=== PATIENT | female | born 1960 | race Caucasian/White ===

== ENCOUNTER 2018-05-04 17:06 | Emergency (ER) | payer MEDICAID ==
[~2018-05-04] VITALS: Ht 167.6 cm; Wt 100.0 kg
[2018-05-04] MEDS ORDERED: normal saline 1000ML IV soln IVB ONE (17:35)
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
--- NOTE | 2018-05-04 17:47 | NUR ---
PATIENT ETOH AND NOT FOLLOWING COMMANDS. PATIENT PULLING AT LINES. PATIENT PLACED IN BILATERAL SOFT LIMB WRIST RESTRAINTS FOR SAFETY.
[2018-05-04 18:36] VITALS: BP 149/88
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
== END 2018-05-04 19:23 ==
LOC: ER 17:07
DX: F10.129 Alcohol abuse with intoxication, unspecified (principal); Y90.9 Presence of alcohol in blood, level not specified
CPT/HCPCS: 99284; J7030

== ENCOUNTER 2018-05-04 19:56 | Emergency (ER) | payer MEDICAID ==
[~2018-05-04] VITALS: Ht 162.6 cm; Wt 85.2 kg
[2018-05-04 22:19] VITALS: BP 142/80
== END 2018-05-04 22:23 | disposition home or self-care (01) ==
LOC: ER 19:57
DX: S00.12XA Contusion of left eyelid and periocular area, initial encounter (principal); F10.129 Alcohol abuse with intoxication, unspecified; Y90.9 Presence of alcohol in blood, level not specified; W18.39XA Other fall on same level, initial encounter; Y93.89 Activity, other specified; Y92.89 Other specified places as the place of occurrence of the external cause; Y99.8 Other external cause status
CPT/HCPCS: 70450; 70486; 72125; 99284

== ENCOUNTER 2019-01-10 09:56 | Observation (INO) | payer MEDICAID ==
[~2019-01-10] VITALS: Ht 162.6 cm; Wt 93.2 kg
[2019-01-10 10:44] LABS: BASOPHILS % (AUTO) 0.7 % (0-1); EOSINOPHILS # (AUTO) 0.2 X10'3 (0-0.9); EOSINOPHILS % (AUTO) 4.5 % (0-6); HEMATOCRIT 41.7 % (35.0-45.0); HEMOGLOBIN 14.1 g/dl (12.0-16.0); LYMPHOCYTES # (AUTO) 1.4 X10'3 (1.1-4.8); LYMPHOCYTES % (AUTO) 27.5 % (21-51); MEAN CORPUSCULAR HEMOGLOBIN 31.4 PG (27.0-31.0); MEAN CORPUSCULAR HGB CONC 33.8 g/dL (33.0-36.5); MEAN CORPUSCULAR VOLUME 92.9 FL (78-98); MEAN PLATELET VOLUME 8.7 FL (7.4-10.4); MONOCYTES # (AUTO) 0.4 X10'3 (0-0.9); MONOCYTES % (AUTO) 7.6 % (2-12); NEUTROPHILS % (AUTO) 59.7 % (42-75); PLATELET COUNT 230 X10'3 (140-440); RED BLOOD COUNT 4.48 X10'6 (4.20-5.60); RED CELL DISTRIBUTION WIDTH 12.3 % (11.5-14.5)
[2019-01-10 10:53] LABS: PARTIAL THROMBOPLASTIN TIME 25 SECONDS (22-32)
[2019-01-10 10:59] LABS: ALANINE AMINOTRANSFERASE 44 U/L (12-78); ALBUMIN 4.5 G/DL (3.4-5.0); ALBUMIN/GLOBULIN RATIO 1.4 (1.1-1.5); ALKALINE PHOSPHATASE 85 IU/L (46-116); ANION GAP 11 (8-16); ASPARTATE AMINO TRANSFERASE 20 U/L (10-37); BILIRUBIN,TOTAL 0.4 MG/DL (0.1-1.0); BLOOD UREA NITROGEN 14 MG/DL (7-18); CALCIUM 8.9 MG/DL (8.5-10.1); CHLORIDE 103 MMOL/L (99-107); CREATININE 0.56 MG/DL (0.40-0.90); GLUCOSE 148 MG/DL (70-104); POTASSIUM 4.1 MMOL/L (3.5-5.1); SODIUM 141 MMOL/L (135-145); TOTAL CARBON DIOXIDE 26.9 MMOL/L (24-32); TOTAL PROTEIN 7.7 G/DL (6.4-8.2); eGFR > 90 ML/MIN
[2019-01-10] MEDS ORDERED: aspirin 325mg tablet PO ONE (11:20)
[2019-01-10] MEDS ORDERED: aspirin 81mg tab.chew PO ONE (11:20)
[2019-01-10] MEDS ORDERED: magnesium 2GM in 50ml NS 50 ML IV PRN (11:45)
[2019-01-10] MEDS ORDERED: magnesium Cl slow-release 64mg tablet PO PRN (11:45)
[2019-01-10] MEDS ORDERED: potassium Cl 20 mEq SR tablet PO PRN ×2 (11:45)
[2019-01-10] MEDS ORDERED: magnesium hydroxide 30ml (MOM) UD suspension PO PRN (11:45)
[2019-01-10] MEDS ORDERED: morphine 2 MG/ML inj. syringe IV PRN ×2 (11:45)
[2019-01-10] MEDS ORDERED: mag hydrox/Alum hydrox/simeth 30ml oral suspension PO PRN (11:45)
[2019-01-10] MEDS ORDERED: magnesium 4gm in 100ml NS 100 ML IV PRN (11:45)
[2019-01-10] MEDS ORDERED: ondansetron/PF 4mg/2ml inj IV PRN (11:45)
[2019-01-10] MEDS ORDERED: acetaminophen 325mg tablet PO PRN ×2 (11:45)
[2019-01-10] MEDS ORDERED: potassium CL 10mEq/100ml bag 100 ML IV PRN ×2 (11:45)
[2019-01-10] MEDS ORDERED: AMLO10TA13 PO (12:35)
[2019-01-10] MEDS ORDERED: MELO-100 PO (12:35)
[2019-01-10] MEDS ORDERED: CETI10TA14 PO (12:35)
[2019-01-10] MEDS ORDERED: LOSA50TA64 PO (12:35)
[2019-01-10] MEDS ORDERED: ATOR20TA66 PO (12:35)
[2019-01-10] MEDS ORDERED: TRAZ-219 PO (12:35)
[2019-01-10] MEDS ORDERED: VENL75CA61 PO (12:35)
[2019-01-10] MEDS ORDERED: LORA10TA7 PO (12:35)
[2019-01-10] MEDS ORDERED: METF-950 PO (12:35)
[2019-01-10] MEDS ORDERED: LEVO50TA8 PO (12:35)
[2019-01-10] MEDS ORDERED: HYDR12.55 PO (12:35)
[2019-01-10] MEDS ORDERED: MONT10TA24 PO (12:35)
[2019-01-10] MEDS ORDERED: MULT-955 PO (12:52)
[2019-01-10] MEDS ORDERED: CALC-1051 PO (12:54)
[2019-01-10] MEDS ORDERED: MELOXICAM 15 MG PO SCH (13:45)
[2019-01-10] MEDS: naproxen 500mg tablet PO SCH ×2 (14:01→18:00)
[2019-01-10] MEDS ORDERED: nitroGLYCERIN 0.4mg SUBLingual tab SL PRN (14:15)
[2019-01-10] MEDS ORDERED: regadenoson 0.4mg/5ml syringe IV ONE (14:15)
[2019-01-10] MEDS ORDERED: dextrose ORAL solution 15 GM/59 ML bottle PO PRN ×2 (14:15)
[2019-01-10] MEDS ORDERED: aminophylline 250mg/10ml inj. IV PRN (14:15)
[2019-01-10] MEDS ORDERED: metoprolol tartrate 1mg/ml inj IV PRN (14:15)
[2019-01-10] MEDS ORDERED: dextrose 50%-water 50ml dispensing syringe IV PRN ×2 (14:15)
[2019-01-10] MEDS ORDERED: MESSAGE TO PHARMACY PO ONE (14:15)
[2019-01-10] MEDS ORDERED: glucagon, human recombinant 1mg kit SUBCUT PRN (14:15)
[2019-01-10] MEDS ORDERED: insulin Lispro (HumaLOG) vial - multi-dose SQ SCH (14:15)
[2019-01-10 14:23] LABS: HEMOGLOBIN A1C 6.3 % (4.5-6.2)
[2019-01-10 15:59] LABS: MAGNESIUM 2.5 MG/DL (1.5-2.4)
[2019-01-10 16:36] VITALS: BP 126/64
--- NOTE | 2019-01-10 16:40 | NUR ---
received report from LOTUS escamilla RN,assumed care of pt,pt admitted to .310 @[id number].
[2019-01-10] MEDS ORDERED: calcium carbonate/vitamin D3 tablet PO SCH (17:30)
[2019-01-10 18:00] VITALS: BP 121/71
--- NOTE | 2019-01-10 18:05 | NUR ---
Patient in room MED 310. I have received report from GIANNA Cardona and had the opportunity to ask questions and assume patient care.
--- NOTE | 2019-01-10 18:24 | NUR ---
[facility] documentation and med administration: I have reviewed and agree with all interventions, assessments performed and documented by Ashia KATZ.
--- NOTE | 2019-01-10 20:20 | NUR ---
At 1956 performed EKG per [facility] protocol, this had not been completed with the 6 hour troponin and the patient was complaining of 3-4/10 chest pain. In report I was told that the patient was given some Tylenol for the pain and there was not NTG or Morphine ordered for patient. The EKG did show some ST elevation in the II lead and so I went to show this to Dr. Beltran who compared with previous EKG from around 1400 and he signed off on and noted the changes. I reported to him that the patient was continuing to have the chest pains and that I saw that there were orders for NTG for the patient. He said to give to the patient. I did give this to the patient Nitroglycerin 0.4mg tablet x1, within 1 minute she stated that her pain had subsided and she felt that she could breathe easier. Will continue to monitor patient for duration of shift.
[2019-01-10] MEDS: nitroGLYCERIN 0.4mg SUBLingual tab SL PRN (20:22)
[2019-01-10] MEDS: metoprolol tartrate 12.5mg (1/2 tablet) PO SCH (20:48)
[2019-01-10] MEDS ORDERED: traZODone 50mg tablet PO SCH (21:00)
[2019-01-10] MEDS ORDERED: insulin glargine (Lantus) pen - multi-dose SQ SCH (21:00)
[2019-01-10] MEDS ORDERED: montelukast 10mg tablet PO SCH (21:00)
[2019-01-10 22:00] VITALS: BP 103/57
[2019-01-11] VITALS (11 sets, daily range): BP systolic 104–162; BP diastolic 58–78
[2019-01-11] MEDS: nitroGLYCERIN 0.4mg SUBLingual tab SL PRN (04:15)
--- NOTE | 2019-01-11 04:15 | NUR ---
Patient was complaining of chest pain 6/10 on left sternum radiating to left shoulder. Gave one nitroglycerin sublingual and pain lowered to 3/10 in 2 minutes. EKG was taken with no changes. Troponin was negative. Will continue to monitor.
[2019-01-11 04:37] LABS: BASOPHILS # (AUTO) 0.1 X10'3 (0-0.2); EOSINOPHILS # (AUTO) 0.2 X10'3 (0-0.9); EOSINOPHILS % (AUTO) 3.7 % (0-6); HEMATOCRIT 39.6 % (35.0-45.0); HEMOGLOBIN 13.2 g/dl (12.0-16.0); LYMPHOCYTES % (AUTO) 32.4 % (21-51); MEAN CORPUSCULAR HEMOGLOBIN 31.5 PG (27.0-31.0); MEAN CORPUSCULAR HGB CONC 33.3 g/dL (33.0-36.5); MEAN CORPUSCULAR VOLUME 94.6 FL (78-98); MEAN PLATELET VOLUME 8.7 FL (7.4-10.4); MONOCYTES # (AUTO) 0.4 X10'3 (0-0.9); MONOCYTES % (AUTO) 6.3 % (2-12); NEUTROPHILS # (AUTO) 3.4 X10'3 (1.8-7.7); NEUTROPHILS % (AUTO) 56.6 % (42-75); PLATELET COUNT 215 X10'3 (140-440); RED BLOOD COUNT 4.19 X10'6 (4.20-5.60); RED CELL DISTRIBUTION WIDTH 12.4 % (11.5-14.5)
[2019-01-11 04:53] LABS: ALBUMIN 3.7 G/DL (3.4-5.0); ANION GAP 9 (8-16); BLOOD UREA NITROGEN 21 MG/DL (7-18); BUN/CREATININE RATIO 38.9 (6.6-38.0); CALCIUM 8.4 MG/DL (8.5-10.1); CHLORIDE 108 MMOL/L (99-107); CHOL/HDL RATIO 4.1 (0.00-4.99); CHOLESTEROL 163 MG/DL (0-200); CREATININE 0.54 MG/DL (0.40-0.90); GLUCOSE 143 MG/DL (70-104); HDL CHOLESTEROL 40 MG/DL (35-60); LDL CHOLESTEROL 101 MG/DL (50-100); MAGNESIUM 2.2 MG/DL (1.5-2.4); POTASSIUM 4.1 MMOL/L (3.5-5.1); SODIUM 143 MMOL/L (135-145); TOTAL CARBON DIOXIDE 25.6 MMOL/L (24-32); TRIGLYCERIDES 189 MG/DL (20-135); TROPONIN I < 0.04 NG/ML (0.0-0.05); eGFR > 90 ML/MIN
--- NOTE | 2019-01-11 05:29 | NUR ---
[facility] documentation: I have reviewed and agree with interventions, assessments performed and documented by GIANNA Dupont. [facility] Medication Administration: For this medication-pass time frame, medication were reviewed, dispensed, administered and documented per hospital policy by GIANNA Dupont.
--- NOTE | 2019-01-11 06:35 | NUR ---
Problems reprioritized. Patient report given, questions answered & plan of care reviewed with GIANNA Galvez.
--- NOTE | 2019-01-11 06:36 | NUR ---
Problems reprioritized. Patient report given, questions answered & plan of care reviewed with GIANNA Galvez.
[2019-01-11] MEDS ORDERED: levoTHYROXINE 25mcg tablet PO SCH (07:00)
[2019-01-11] MEDS: naproxen 500mg tablet PO SCH (07:30)
[2019-01-11] MEDS ORDERED: amLODIPine 5mg tablet PO SCH (08:00)
[2019-01-11] MEDS ORDERED: enoxaparin 40mg/0.4ml syringe SQ SCH (08:00)
[2019-01-11] MEDS ORDERED: K and/or MAG REPLACEMENT MC SCH (08:00)
[2019-01-11] MEDS ORDERED: HYDROchlorothiazide 12.5mg capsule PO SCH (08:00)
[2019-01-11] MEDS ORDERED: multivitamins, therapeutics tablet PO SCH (08:00)
[2019-01-11] MEDS ORDERED: aspirin 325mg tablet, delayed-release (Ecotrin) PO SCH (08:00)
[2019-01-11] MEDS ORDERED: loratadine 10mg tablet PO SCH (08:00)
[2019-01-11] MEDS ORDERED: losartan 50mg tablet PO SCH (08:00)
[2019-01-11] MEDS ORDERED: atorvastatin 20mg tablet PO SCH (08:00)
[2019-01-11] MEDS ORDERED: venlafaxine XR 75mg capsule (Q24H) PO SCH (08:00)
[2019-01-11] MEDS: metoprolol tartrate 12.5mg (1/2 tablet) PO SCH (08:00)
[2019-01-11] MEDS ORDERED: pneumococcal 23-VAL P-sac vacc 25 mcg/0.5ml vial IMVAC ONE (10:00)
--- NOTE | 2019-01-11 12:30 | NUR ---
Called Dr. Claire re: Lexiscan results being negative. Asked her if she was okay to eat. Dr. Claire states she may eat and that she will come and discharge her in a bit.
[2019-01-11] MEDS ORDERED: METO25TA6 PO (13:14)
--- NOTE | 2019-01-11 14:32 | NUR ---
contacted Dr. loo,re; metoprolol ordered at discharge,reviewed home meds and v/s ;metoprolol dc'd reviewed all discharge instructions and need for f/u appt dc'd iv from left ac,site clear,pt dc'd home with all belongings
== END 2019-01-11 14:25 | disposition home or self-care (01) ==
LOC: ER 09:57 → MED 3N 16:08
PROVIDERS: ADMIT Hospitalist; ATTEND Hospitalist
DX: R07.2 Precordial pain (principal); E03.9 Hypothyroidism, unspecified; E11.9 Type 2 diabetes mellitus without complications; E78.5 Hyperlipidemia, unspecified; I10 Essential (primary) hypertension; Z79.84 Long term (current) use of oral hypoglycemic drugs; Z79.899 Other long term (current) drug therapy
CPT/HCPCS: 36415; 71045; 78452; 80048; 80053; 80061; 82948; 83036; 83735; 84484; 85025; 85610; 85730; 87081; 93005; 93017; 93306; 96372; 99284; A9500; G0378; J0280; J2785; J1650; J1815